=== PATIENT | female | born 1970 | race Two or more races ===

== ENCOUNTER → 2020-05-04 13:13 | Outpatient (BNVA) | payer OTHER, SELFPAY | PROVIDERS: PCP Internal Medicine; Referring Provider Internal Medicine; Visit Provider Physician Assistant | DX: Z76.89 Persons encountering health services in other specified circumstances (principal) ==

== ENCOUNTER → 2020-05-06 13:22 | Outpatient (BNVA) | payer OTHER, SELFPAY | PROVIDERS: PCP Internal Medicine; Visit Provider Physician Assistant | DX: E66.01 Morbid (severe) obesity due to excess calories (principal); Z68.42 Body mass index [BMI] 45.0-49.9, adult; K90.49 Malabsorption due to intolerance, not elsewhere classified; Z98.84 Bariatric surgery status; I83.12 Varicose veins of left lower extremity with inflammation | CPT/HCPCS: 99203; 99213 ==

== ENCOUNTER 2020-05-11 12:29 | Outpatient (REF) | payer OTHER, SELFPAY ==
--- NOTE | 2020-05-11 12:33 | US_ITS ---
EXAMINATION: RIGHT and LEFT LOWER EXTREMITY VENOUS ULTRASOUND (Reflux Exam) CLINICAL INDICATION: leg pain and varicose veins. COMPARISON: None. TECHNIQUE: Color flow triplex imaging and compression Doppler was performed to evaluate both the deep and the superficial systems bilaterally. To evaluate the superficial system, the examination was performed in the upright position. Color-flow Doppler ultrasound and compression ultrasound were utilized. In addition, maneuvers were utilized to demonstrate reflux. FINDINGS: 1. DEEP VENOUS ULTRASOUND OF THE RIGHT LOWER EXTREMITY: Respiratory variation, normal compression and augmented flow are noted in the right common femoral vein as well as the right popliteal vein and there is no evidence of deep venous thrombosis at these locations. There is no evidence of reflux in the deep system in either the common femoral vein or the popliteal vein. There is no evidence of a Maza's cyst. 2. SUPERFICIAL ULTRASOUND WITH DOPPLER OF RIGHT LOWER EXTREMITY: The right great saphenous vein at the saphenofemoral junction measures 11 mm, at the mid thigh 4 mm, [id number]-ydu-tfac 4 mm, lxamy-emk-okdh 3 mm, at mid calf 3 mm and at the ankle measures 3 mm. There is right greater saphenous vein reflux measuring 0.6 seconds at the knee, 3.5 seconds below the knee and 2 seconds in the mid calf. There is an accessory medial greater saphenous vein that measures 7 mm and does not demonstrate reflux The right small saphenous vein measures 1-2 mm and shows no reflux. There is a belt loop cutter in the proximal calf that measures 5 mm and does not demonstrate reflux. There are varicosities in the thigh ranging between 3 and 6 mm that do not demonstrate reflux. There is a varicosity in the proximal calf that measures 4 mm and does not demonstrate reflux. There is a varicosity in the mid calf that measures 4 mm and demonstrates 3.3 seconds reflux. 3. DEEP VENOUS ULTRASOUND OF THE LEFT LOWER EXTREMITY: Respiratory variation, normal compression and augmented flow are noted in the left common femoral vein as well as the left popliteal vein and there is no evidence of deep venous thrombosis at these locations. There is no evidence of reflux in the deep system in either the common femoral vein or the popliteal vein. . There is no evidence of a Maza's cyst. 4. SUPERFICIAL ULTRASOUND WITH DOPPLER OF LEFT LOWER EXTREMITY: Left great saphenous vein at the saphenofemoral junction measures 12 mm, at the mid thigh 6 mm, vovtw-oqz-qynk 8 mm, oswyj-tiv-bfal 7 mm, at mid calf 5 mm and at the ankle measures 2 mm. There is left greater saphenous vein reflux throughout, greatest measuring 3.5 seconds in the proximal thigh, 3.3 seconds above the knee and 3 seconds in the. There is an accessory lateral greater saphenous vein that measures 4 mm in the mid thigh and 7 mm at the saphenofemoral junction. This demonstrates 0.7 and 3.6 seconds reflux in these locations. The left small saphenous vein measures 2-3 mm and shows no reflux. There are perforators in the mid thigh that measures 6 mm and proximal calf that measures 4 mm and does not demonstrate reflux. There is a 9 mm varicosity of the lateral accessory greater saphenous vein demonstrates 1.1 seconds reflux. There are varicosities in the thigh measuring between 5 and 7 mm. There is a varicosity in the distal thigh that measures 6 mm and demonstrates 3.6 seconds reflux. There are varicosities at the knee that measure 5 to 6 mm, one of which demonstrates 3.2 seconds reflux. There are varicosities in the calf measuring between 6 and 7 mm and doesn't demonstrate reflux ranging between 0.6 and 3.1 seconds. US/US venous duplex LE BI IMPRESSION: 1. No evidence of reflux or thrombus in the common femoral veins or popliteal veins bilaterally. 2. Bilateral greater saphenous vein reflux, left greater than right. Lateral accessory left greater saphenous vein that demonstrates reflux. Bilateral varicosities that demonstrate reflux, left greater than right.
[2020-05-11 14:54] LABS: MANUAL DIFF FLAG NO
[2020-05-11 15:02] LABS: Basophils Percent Auto 0.6 % (0-2); Eosinophils Absolute Auto 0.1 X10*3/uL (0.0-0.4); Hematocrit 40.5 % (37-47); Hemoglobin 12.6 g/dl (12.0-16.0); Imm Gran Abs Auto 0.02 X10*3/uL (0.00-0.03); Imm Gran Pct Auto 0.4 % (0.0-0.4); Mean Corpuscular HGB Conc 31.1 g/dl (31.0-35.0); Mean Corpuscular Hemoglobin 27.3 pg (27.0-33.0); Mean Corpuscular Volume 87.7 fL (80-98); Monocytes Absolute Auto 0.4 X10*3/uL (0.1-1.2); Monocytes Percent Auto 7.5 % (2-11); Neutrophils Absolute Auto 3.1 X10*3/uL (2.0-8.3); Neutrophils Percent Auto 67.5 % (45-73); Platelet Count 275 X10*3/uL (160-400); Red Blood Count 4.62 X10*6/uL (4.20-5.50); Red Cell Distribution Width 14.4 % (11.0-16.0); White Blood Count 4.7 X10*3/uL (4.8-10.8)
[2020-05-11 15:07] LABS: Estimated Average Glucose 91 mg/dL; Hemoglobin A1c % 4.8 %
[2020-05-11 15:21] LABS: Alanine Aminotransferase 13 U/L (0-31); Albumin Level 3.7 g/dL (3.5-5.0); Alkaline Phosphatase 147 U/L (39-117); Anion Gap 11 (12-20); Aspartate Amino Transferase 14 U/L (5-31); Bilirubin Total 0.5 mg/dL (0.0-1.0); Blood Urea Nitrogen 13 mg/dL (9-16); C Reactive Protein 2.48 mg/dL (< or = 0.50); Calcium 8.5 mg/dL (8.4-10.2); Carbon Dioxide 30 mmol/L (22-29); Chloride 103 mmol/L (96-108); Cholesterol 142 mg/dL; Estimated Glomerular Filt Rate > 60; Glucose Random 92 mg/dL (60-115); HDL Cholesterol 52 mg/dL; Iron 38 mcg/dL (30-160); LDL Cholesterol Calculated 74 mg/dl; Percent Iron Saturation 12 % (15-50); Potassium 4.5 mmol/l (3.3-5.1); Sodium 139 mmol/L (135-145); Total Iron Binding Capacity 324 mcg/dL (228-428); Total Protein 6.9 g/dL (6.5-8.0); Triglycerides 83 mg/dL; Unsaturated Iron Binding 286 ug/dL
[2020-05-11 15:44] LABS: Ferritin 179 ng/mL (10-250); TSH reflex Free T4 1.14 mIU/mL (0.32-4.0); Vitamin D 25-OH Total 18.7 ng/mL (>30)
[2020-05-11 15:56] LABS: Folate 6.9 ng/mL (> or = 4.0); Vitamin B12 271 pg/mL (200-900)
[2020-05-12 19:27] LABS: Calcium (PTHI) 8.7 mg/dL (8.6-10.2); PTHI 87 pg/mL (14-64)
[2020-05-13 13:32] LABS: Insulin Level Total 5.3 uIU/mL
[2020-05-15 00:47] LABS: Zinc 52 mcg/dL (60-130)
[2020-05-15 13:07] LABS: Vitamin B1 7 nmol/L (8-30)
[2020-05-17 14:06] LABS: Vitamin A 26 mcg/dL (38-98)
== END 2020-05-11 12:30 | disposition home or self-care (01) ==
LOC: HO.US 12:29
PROVIDERS: PCP Internal Medicine; Visit Provider Surgery Vascular Surgery
DX: I83.12 Varicose veins of left lower extremity with inflammation (principal); I83.893 Varicose veins of bilateral lower extremities with other complications; Z98.84 Bariatric surgery status
CPT/HCPCS: 36415; 80053; 80061; 82306; 82607; 82728; 82746; 83036; 83525; 83540; 83970; 84425; 84443; 84590; 84630; 85025; 86140; 93970

== ENCOUNTER → 2020-05-14 08:53 | Outpatient (BNVA) | payer OTHER, SELFPAY | PROVIDERS: PCP Internal Medicine; Visit Provider Dietitian, Registered | DX: Z76.89 Persons encountering health services in other specified circumstances (principal) ==

== ENCOUNTER → 2020-06-07 14:14 | Outpatient (BNVA) | payer OTHER, SELFPAY | PROVIDERS: PCP Internal Medicine; Referring Provider Internal Medicine; Visit Provider Surgery Vascular Surgery | DX: I83.12 Varicose veins of left lower extremity with inflammation (principal) | CPT/HCPCS: 99212 ==

== ENCOUNTER → 2020-08-06 08:44 | Outpatient (BNVA) | payer OTHER, SELFPAY | PROVIDERS: PCP Internal Medicine; Visit Provider Physician Assistant ==

== ENCOUNTER → 2020-09-10 07:29 | Outpatient (BNVA) | payer OTHER, SELFPAY | PROVIDERS: PCP Internal Medicine; Visit Provider Surgery Vascular Surgery | DX: I83.12 Varicose veins of left lower extremity with inflammation (principal) | CPT/HCPCS: 36482 ==

== ENCOUNTER 2020-09-13 15:45 | Outpatient (REF) | payer OTHER, SELFPAY ==
--- NOTE | ~2020-09-13 | US_ITS ---
EXAMINATION: US VENOUS ULTRASOUND WITH DOPPLER LOWER EXTREMITY, LEFT CLINICAL INFORMATION: Status post Venaseal COMPARISON: Venous Doppler ultrasound exam of 05/11/2020 bilateral lower extremities. TECHNIQUE: Ultrasound of the deep veins is performed from the hip to the calf with compression sonography and color and pulse Doppler assessment. Spectral analysis with color-flow imaging is performed. FINDINGS: There is normal venous compression and respiratory variation and augmented flow. The visualized common femoral vein, superficial femoral vein, profunda femoral vein, popliteal vein, and the trifurcation region shows no evidence of deep venous thrombosis. There is no significant popliteal fossa cyst. There is thrombus in the greater saphenous vein. This lies 7.2 cm from the junction with the femoral vein. If the patient's symptoms persist, followup ultrasound in 5 days 7 days might be of value to exclude proximal propagation from a non-visualized calf vein. US/US venous duplex LE LT IMPRESSION: 1. No DVT demonstrated in the left lower extremity. 2. Thrombus in the greater saphenous vein. History of Venaseal
== END 2020-09-13 15:46 | disposition home or self-care (01) ==
LOC: HO.US 15:45
PROVIDERS: Visit Provider Surgery Vascular Surgery
DX: M79.605 Pain in left leg (principal)
CPT/HCPCS: 93971

== ENCOUNTER → 2020-09-23 13:56 | Outpatient (BNVA) | payer OTHER, SELFPAY | PROVIDERS: PCP Internal Medicine; Visit Provider Surgery Vascular Surgery | DX: I83.11 Varicose veins of right lower extremity with inflammation (principal) | CPT/HCPCS: 99212 ==

== ENCOUNTER → 2020-10-14 09:49 | Outpatient (BNVA) | payer OTHER, SELFPAY | PROVIDERS: PCP Internal Medicine; Visit Provider Physician Assistant ==

== ENCOUNTER → 2020-10-19 10:24 | Outpatient (BNVA) | payer OTHER, SELFPAY | PROVIDERS: PCP Internal Medicine; Visit Provider Surgery Vascular Surgery | DX: I83.11 Varicose veins of right lower extremity with inflammation (principal) | CPT/HCPCS: 99212 ==

== ENCOUNTER → 2020-11-12 08:52 | Outpatient (BNVA) | payer OTHER, SELFPAY | PROVIDERS: PCP Internal Medicine; Visit Provider Surgery Vascular Surgery | DX: I83.11 Varicose veins of right lower extremity with inflammation (principal) | CPT/HCPCS: 36475; Q0163 ==

== ENCOUNTER 2020-11-15 12:37 | Outpatient (REF) | payer OTHER, SELFPAY ==
--- NOTE | ~2020-11-15 | US_ITS ---
EXAMINATION: US VENOUS ULTRASOUND WITH DOPPLER LOWER EXTREMITY, RIGHT CLINICAL INFORMATION: Post right leg RFA COMPARISON: Previous exam September 2020 TECHNIQUE: Ultrasound of the deep veins is performed from the hip to the calf with compression sonography and color and pulse Doppler assessment. Spectral analysis with color-flow imaging is performed. FINDINGS: There is normal venous compression and respiratory variation and augmented flow. The visualized common femoral vein, superficial femoral vein, profunda femoral vein, popliteal vein, and the trifurcation region shows no evidence of deep venous thrombosis. There is echogenic material in the right greater saphenous vein. This is 5.6 cm from the saphenofemoral junction. The remainder of the right greater saphenous vein is closed. There is no significant popliteal fossa cyst. US/US venous duplex LE RT IMPRESSION: No evidence of DVT.
== END 2020-11-15 12:38 | disposition home or self-care (01) ==
LOC: HO.HMGCX 12:37
PROVIDERS: PCP Internal Medicine; Visit Provider Surgery Vascular Surgery
DX: M79.604 Pain in right leg (principal)
CPT/HCPCS: 93971

== ENCOUNTER → 2020-11-16 14:25 | Outpatient (BNVA) | payer OTHER, SELFPAY | PROVIDERS: PCP Internal Medicine; Visit Provider Physician Assistant ==

== ENCOUNTER → 2020-11-25 13:34 | Outpatient (BNVA) | payer OTHER, SELFPAY | PROVIDERS: PCP Internal Medicine; Visit Provider Surgery Vascular Surgery | DX: I83.11 Varicose veins of right lower extremity with inflammation (principal) | CPT/HCPCS: 99212 ==

== ENCOUNTER → 2020-12-02 08:14 | Outpatient (BNVA) | payer OTHER, SELFPAY | PROVIDERS: PCP Internal Medicine; Visit Provider Physician Assistant ==

== ENCOUNTER → 2020-12-21 14:36 | Outpatient (BNVA) | payer OTHER, SELFPAY | PROVIDERS: PCP Internal Medicine; Visit Provider Dietitian, Registered | DX: E66.01 Morbid (severe) obesity due to excess calories (principal); Z68.42 Body mass index [BMI] 45.0-49.9, adult | CPT/HCPCS: 97803 ==

== ENCOUNTER 2020-12-28 14:16 | Outpatient (REF) | payer OTHER, SELFPAY ==
[2020-12-28 15:01] LABS: MANUAL DIFF FLAG NO
[2020-12-28 15:07] LABS: Basophils Percent Auto 0.8 % (0-2); Eosinophils Absolute Auto 0.1 X10*3/uL (0.0-0.4); Eosinophils Percent Auto 2.5 % (0-4); Hematocrit 43.8 % (37-47); Hemoglobin 13.7 g/dl (12.0-16.0); Imm Gran Abs Auto 0.01 X10*3/uL (0.00-0.03); Imm Gran Pct Auto 0.3 % (0.0-0.4); Mean Corpuscular HGB Conc 31.3 g/dl (31.0-35.0); Mean Corpuscular Hemoglobin 26.8 pg (27.0-33.0); Mean Corpuscular Volume 85.7 fL (80-98); Mean Platelet Volume 11.8 fL (9.4-12.3); Monocytes Absolute Auto 0.3 X10*3/uL (0.1-1.2); Monocytes Percent Auto 7.8 % (2-11); Neutrophils Absolute Auto 2.5 X10*3/uL (2.0-8.3); Neutrophils Percent Auto 62.6 % (45-73); Platelet Count 250 X10*3/uL (160-400); Red Blood Count 5.11 X10*6/uL (4.20-5.50); Red Cell Distribution Width 13.8 % (11.0-16.0)
[2020-12-28 15:16] LABS: Estimated Average Glucose 103 mg/dL; Hemoglobin A1c % 5.2 %
[2020-12-28 15:37] LABS: Alanine Aminotransferase 11 U/L (0-31); Albumin Level 3.5 g/dL (3.5-5.0); Alkaline Phosphatase 144 U/L (39-117); Anion Gap 11 (12-20); Aspartate Amino Transferase 18 U/L (5-31); Bilirubin Total 0.4 mg/dL (0.0-1.0); Blood Urea Nitrogen 8 mg/dL (9-16); C Reactive Protein 0.56 mg/dL (< or = 0.50); Calcium 8.5 mg/dL (8.4-10.2); Carbon Dioxide 27 mmol/L (22-29); Chloride 106 mmol/L (96-108); Cholesterol 143 mg/dL; Estimated Glomerular Filt Rate > 60; Glucose Fasting 86 mg/dL (60-99); HDL Cholesterol 51 mg/dL; Iron 77 mcg/dL (30-160); LDL Cholesterol Calculated 77 mg/dl; Percent Iron Saturation 24 % (15-50); Potassium 4.7 mmol/L (3.3-5.1); Sodium 139 mmol/L (135-145); Total Iron Binding Capacity 324 mcg/dL (228-428); Total Protein 6.5 g/dL (6.5-8.0); Triglycerides 78 mg/dL; Unsaturated Iron Binding 247 ug/dL
[2020-12-28 15:50] LABS: Ferritin 137 ng/mL (10-250); TSH reflex Free T4 0.51 uIU/mL (0.32-4.0); Vitamin D 25-OH Total 15.7 ng/mL (>30)
[2020-12-28 16:04] LABS: Folate 12.8 ng/mL (> or = 4.0); Vitamin B12 170 pg/mL (200-900)
[2020-12-29 22:26] LABS: Insulin Level Total 6.6 uIU/mL
[2020-12-30 17:31] LABS: Calcium (PTHI) 8.7 mg/dL (8.6-10.2); PTHI 99 pg/mL (14-64)
[2020-12-31 00:22] LABS: Zinc 50 mcg/dL (60-130)
[2021-01-01 19:46] LABS: Vitamin A 32 mcg/dL (38-98)
[2021-01-02 12:36] LABS: Vitamin B1 11 nmol/L (8-30)
== END 2020-12-28 14:17 | disposition home or self-care (01) ==
LOC: HO.LAB 14:16
PROVIDERS: PCP Internal Medicine; Visit Provider Physician Assistant
DX: E66.01 Morbid (severe) obesity due to excess calories (principal); K90.49 Malabsorption due to intolerance, not elsewhere classified; Z98.84 Bariatric surgery status
CPT/HCPCS: 36415; 80053; 80061; 82306; 82607; 82728; 82746; 83036; 83525; 83540; 83970; 84425; 84443; 84590; 84630; 85025; 86140

== ENCOUNTER 2024-05-13 13:14 | Outpatient (AMB) | payer OTHER, SELFPAY ==
--- NOTE | 2024-05-13 13:03 | MHC.OFFVISWM ---
VS Expanded 05/13/24 13:11 Height 5 ft 6 in Weight 335 lb BMI 54.1 Intake Visit Reasons: TV PO LSG 01/20/2020 Junior Software Engineer Required: Yes Junior Software Engineer Name: [id number] Information Interpreted: clinical only Allergies almond [ALMOND] Allergy (Unknown, Verified 11/25/20 14:03) PER H&P codeine [CODEINE] Allergy (Unknown, Verified 11/25/20 14:03) PER H&P hydromorphone [From DILAUDID] Allergy (Unknown, Verified 11/25/20 14:03) PER H&P lorazepam [LORAZEPAM] Allergy (Unknown, Verified 11/25/20 14:03) PER H&P nalbuphine [From NUBAIN] Allergy (Unknown, Verified 11/25/20 14:03) PER H&P oxycodone [OXYCODONE] Allergy (Unknown, Verified 11/25/20 14:03) PER H&P Medication List - Last Reconciled 05/13/24 by THIERRY Connolly calcium citrate-vitamin D3 250 mg-5 mcg (200 unit) 2 tabs PO BID cetirizine (Zyrtec) 10 mg PO DAILY nabumetone (Relafen) 500 mg PO BID pantoprazole 40 mg PO DAILY trazodone 50 mg PO DAILY zolpidem ER (Ambien CR) 12.5 mg PO BEDTIME PRN HPI Comments Details: Pt is s/p LSG 01/19/2021. Has not been seen since 2020. Weight change of Pt reports some abdominal pain with eating/drinking. This is accompanied by nausea. Takes PPI BID. No tobacco, no EtOH, has been on naproxen for last 2 weeks but reports pain has been going on longer, 2 months or so. Current meal plan: may only eat once a day due to fear of pain will eat bananas baked in oven, boiled meat, does not like rice, pork gives her trouble no protein shakes pt wants endoscopy [facility] Medical History Allergies Anemia Asthma Back spasm BMI 45.0-49.9, adult Hemorrhoids History of blood transfusion Malabsorption due to intolerance, not elsewhere classified Morbid obesity Neck muscle spasm Osteoarthritis Pancreatitis Surgical History Gastric bypass status for obesity Hx laparoscopic cholecystectomy S/P laparoscopic sleeve gastrectomy Family History Father Heart attack Mother No problems noted. Brother No problems noted. Brother No problems noted. Telehealth Telehealth Telehealth Platform: Telephone Location of provider rendering services: other Location of patient: address on file Patient Identification confirmed using: Name, : Yes Telehealth method: video Patient verbally consented to treatment: Yes Patient verbally consented to billing insurance company: Yes Patient informed of any privacy concerns related to visit: Yes Minutes spent on Phone/Video with Pt.: 18 Assessment & Plan Assessment & Plan (1) Morbid obesity: Code(s): E66.01 - Morbid (severe) obesity due to excess calories Category: Medical (2) S/P laparoscopic sleeve gastrectomy: Comment: JOHAN 01/14/20, Dr. Becerra Code(s): Z98.84 - Bariatric surgery status Category: Surgical Plan Pt is insistent that something is wrong with her sleeve. Will start with UGI. Discussed the importance of adherence to a high protein meal plan, for now I recommended primarily protein drinks with one meal of solid protein per day. Pt wants to use unflavored protein powder, recommended Isopure- sent photo, 3 shakes per day plus one small meal of protein/veg. Also could use Orgain, sent photo of that as well. RTC once UGI completed. I spent a total of 30 minutes reviewing/updating records, examining the patient and counseling the patient on weight management as detailed above. Orders: Orders FL upper GI w air Today Z98.84 - Bariatric surgery status Complete Blood Count Auto Diff Today Z98.84 - Bariatric surgery status Lipid Panel Today Z98.84 - Bariatric surgery status IRON PROFILE Today Z98.84 - Bariatric surgery status TSH reflex Free T4 Today Z98.84 - Bariatric surgery status Vitamin D 25-OH Total Today Z98.84 - Bariatric surgery status Insulin Today Z98.84 - Bariatric surgery status Hemoglobin A1c Today Z98.84 - Bariatric surgery status Comprehensive Met. Panel Today Z.84 - Bariatric surgery status Vitamin B12 and Folate Today Z98.84 - Bariatric surgery status Zinc Today Z98.84 - Bariatric surgery status C Reactive Protein Today Z98.84 - Bariatric surgery status Vitamin B1 Today Z98.84 - Bariatric surgery status Vitamin A Today Z98.84 - Bariatric surgery status Ferritin Today Z98.84 - Bariatric surgery status
[2024-05-13 13:11] VITALS: BMI 54.1
== END 2024-05-13 13:29 | disposition home or self-care (01) ==
LOC: HO.HBS 13:14
PROVIDERS: PCP Internal Medicine; Visit Provider Physician Assistant Surgical
DX: E66.01 Morbid (severe) obesity due to excess calories (principal); Z68.43 Body mass index [BMI] 50.0-59.9, adult; Z90.3 Acquired absence of stomach [part of]; Z98.84 Bariatric surgery status
CPT/HCPCS: 99214; G2211

== ENCOUNTER → 2024-05-13 13:14 | Outpatient (BNVA) | payer OTHER, SELFPAY | PROVIDERS: PCP Internal Medicine; Visit Provider Physician Assistant Surgical ==

== ENCOUNTER 2024-05-21 07:41 | Outpatient (REF) | payer OTHER, SELFPAY ==
--- NOTE | ~2024-05-21 | FL_ITS ---
EXAMINATION: XR FLUOROSCOPY UPPER GI WITH AIR CLINICAL INFORMATION: Status post gastric bypass surgery. COMPARISON: None TECHNIQUE: Fluoroscopic air contrast upper GI examination was performed utilizing standard techniques with thin and thick barium and effervescent granules. Numerous spot images were obtained. FINDINGS: Dual and single contrast images of the esophagus demonstrate normal caliber, contour, and mucosal pattern. No evidence of stricture, mass, or ulcerations identified. Esophageal peristalsis is moderately disorganized. A small type I hiatal hernia is present. Gastroesophageal reflux is seen up the distal third of the esophagus. Dual contrast and single contrast images of the stomach demonstrated post surgical changes consistent with prior history of Johnny-en-Y gastric bypass. The gastrojejunostomy patent, without evidence of stricture. Mucosal pattern is unremarkable, without evidence of mass, ulceration, or other abnormality. Contrast freely passed into the alimentary limb without delay. The imaged jejunum has a normal fold pattern and caliber. FLUOROSCOPY TIME: 4 minutes 31 seconds Number of Spot Images: 5 Number of Cine: 14 DOSE AREA PRODUCT: [id number] uGy-m2 (microgray-meter squared) FL/FL upper GI w air IMPRESSION: 1. Moderately disorganized esophageal peristalsis. 2. Post surgical changes consistent with prior history of Johnny-en-Y gastric bypass. No complication evident. 3. Small type I hiatal hernia with mild gastroesophageal reflux. This procedure was performed by Angel Dubon PA-C, and supervised by Dr. Maharaj Electronically signed by: Domingo Maharaj MD 05/21/2024 01:04 PM [facility] Workstation: [id number]
[2024-05-21 08:51] LABS: MANUAL DIFF FLAG NO
[2024-05-21 09:24] LABS: Basophils Absolute Auto 0.1 X10*3/uL (0.0-0.2); Eosinophils Absolute Auto 0.2 X10*3/uL (0.0-0.4); Hematocrit 39.9 % (37.0-47.0); Hemoglobin 12.8 g/dl (12.0-16.0); Imm Gran Abs Auto 0.02 X10*3/uL (0.00-0.03); Imm Gran Pct Auto 0.4 % (0.0-0.4); Lymphocytes Absolute Auto 1.5 X10*3/uL (1.2-4.9); Lymphocytes Percent Auto 29.3 % (20-40); Mean Corpuscular HGB Conc 32.1 g/dl (31.0-35.0); Mean Corpuscular Hemoglobin 27.7 pg (27.0-33.0); Mean Corpuscular Volume 86.4 fL (80.0-98.0); Mean Platelet Volume 10.8 fL (9.4-12.3); Monocytes Absolute Auto 0.5 X10*3/uL (0.1-1.2); Neutrophils Absolute Auto 2.9 x10*3/uL (2.0-8.3); Neutrophils Percent Auto 57.3 % (45-73); Platelet Count 269 X10*3/uL (160-400); Red Blood Count 4.62 X10*6/uL (4.20-5.50); Red Cell Distribution Width 14.5 % (11.0-16.0)
[2024-05-21 09:43] LABS: Estimated Average Glucose 108 mg/dL; Hemoglobin A1C 115.0147 umol/L; Hemoglobin A1c % 5.4 % (<6.0); Total Hemoglobin (HGBA1C) 3225.6773 umol/L
[2024-05-21 09:56] LABS: Anion Gap 10 (12-20)
[2024-05-21 10:08] LABS: Alanine Aminotransferase 10 U/L (0-31); Albumin Level 3.5 g/dL (3.5-5.0); Alkaline Phosphatase 137 U/L (39-117); Aspartate Amino Transferase 21 U/L (5-31); Bilirubin Total 0.4 mg/dL (0.0-1.0); Blood Urea Nitrogen 17 mg/dL (9-16); C Reactive Protein 1.11 mg/dL (< or = 0.50); Carbon Dioxide 27 mmol/L (22-29); Chloride 107 mmol/L (96-108); Cholesterol 133 mg/dL (<200); Estimated Glomerular Filt Rate > 60; Glucose Random 87 mg/dL (60-115); HDL Cholesterol 50 mg/dL (>40); Iron 57 mcg/dL (30-160); LDL Cholesterol Calculated 70 mg/dL (<100); Percent Iron Saturation 19 % (15-50); Potassium 4.8 mmol/L (3.3-5.1); Sodium 139 mmol/L (135-145); Total Iron Binding Capacity 296 mcg/dL (228-428); Total Protein 6.7 g/dL (6.5-8.0); Triglycerides 68 mg/dL (<150); Unsaturated Iron Binding 239 ug/dL
[2024-05-21 10:17] LABS: Ferritin 71 ng/mL (10-250); TSH reflex Free T4 1.12 uIU/mL (0.32-4.0); Vitamin D 25-OH Total 10.9 ng/mL (>30)
[2024-05-21 10:48] LABS: Folate 8.6 ng/mL (> or = 4.0); Vitamin B12 210 pg/mL (200-900)
[2024-05-21 11:38] LABS: Insulin 8 uU/mL (2-29)
[2024-05-24 02:58] LABS: Zinc 58 mcg/dL (60-130)
[2024-05-26 13:18] LABS: Vitamin B1 8 nmol/L (8-30)
[2024-05-27 22:59] LABS: Vitamin A 32 mcg/dL (38-98)
== END 2024-05-21 07:42 | disposition home or self-care (01) ==
LOC: HO.XRAY 07:41
PROVIDERS: Visit Provider Physician Assistant Surgical
DX: Z98.84 Bariatric surgery status (principal)
CPT/HCPCS: 36415; 74246; 80053; 80061; 82306; 82607; 82728; 82746; 83036; 83525; 83540; 84425; 84443; 84590; 84630; 85025; 86140

== ENCOUNTER → 2024-05-21 07:48 | Outpatient (BNV) | payer OTHER, SELFPAY | PROVIDERS: Visit Provider Physician Assistant Surgical | DX: Z98.84 Bariatric surgery status (principal) | CPT/HCPCS: 74246 ==